=== PATIENT | female | born 1980 | race African-American/Black ===

== ENCOUNTER 2017-11-22 13:10 | Emergency (ER) | payer MEDICARE, MEDICAID ==
[~2017-11-22] VITALS: Ht 154.9 cm; Wt 72.4 kg
[~2017-11-22 13:10] MED LIST: CYCL5TAB14 PO
[2017-11-22 13:22] VITALS: BP 141/91
[2017-11-22 14:02] LABS: BASOPHILS % (AUTO) 0.3 % (0-1); EOSINOPHILS # (AUTO) 0.1 X10'3 (0-0.9); EOSINOPHILS % (AUTO) 1.2 % (0-6); HEMATOCRIT 35.3 % (35.0-45.0); HEMOGLOBIN 12.2 g/dl (12.0-16.0); LYMPHOCYTES # (AUTO) 2.9 X10'3 (1.1-4.8); LYMPHOCYTES % (AUTO) 33.8 % (21-51); MEAN CORPUSCULAR HEMOGLOBIN 29.4 PG (27.0-31.0); MEAN CORPUSCULAR HGB CONC 34.6 % (33.0-36.5); MEAN PLATELET VOLUME 6.9 FL (7.4-10.4); MONOCYTES # (AUTO) 0.3 X10'3 (0-0.9); MONOCYTES % (AUTO) 4.1 % (2-12); NEUTROPHILS # (AUTO) 5.2 X10'3 (1.8-7.7); NEUTROPHILS % (AUTO) 60.6 % (42-75); PLATELET COUNT 332 X10'3 (140-440); RED BLOOD COUNT 4.15 X10'6 (4.20-5.60); RED CELL DISTRIBUTION WIDTH 13.4 % (11.5-14.5); WHITE BLOOD COUNT 8.5 X10'3 (4.5-11.0)
[2017-11-22 14:04] LABS: URINE HCG NEGATIVE (NEG)
[2017-11-22 14:14] LABS: ALANINE AMINOTRANSFERASE 17 U/L (12-78); ALBUMIN 3.6 G/DL (3.4-5.0); ALBUMIN/GLOBULIN RATIO 0.8 (1.1-1.5); ALKALINE PHOSPHATASE 73 IU/L (46-116); ANION GAP 8 (8-16); ASPARTATE AMINO TRANSFERASE 17 U/L (10-37); BILIRUBIN,TOTAL 0.4 MG/DL (0.1-1.0); BLOOD UREA NITROGEN 11 MG/DL (7-18); BUN/CREATININE RATIO 12.8 (6.6-38.0); CALCIUM 9.2 MG/DL (8.5-10.1); CHLORIDE 105 MMOL/L (99-107); CREATININE 0.86 MG/DL (0.40-0.90); ETHANOL < 0.010 GM/DL (0.0-0.010); GLUCOSE 90 MG/DL (70-104); POTASSIUM 4.3 MMOL/L (3.5-5.1); SODIUM 138 MMOL/L (135-145); TOTAL CARBON DIOXIDE 24.8 MMOL/L (24-32); TOTAL PROTEIN 8.4 G/DL (6.4-8.2); eGFR 89 ML/MIN
[2017-11-22 14:16] LABS: URINE AMPHETAMINE SCREEN NEGATIVE (Neg); URINE BARBITUATE SCREEN NEGATIVE (Neg); URINE BENZODIAZEPINES SCREEN NEGATIVE (Neg); URINE CANNABINOID SCREEN NEGATIVE (Neg); URINE COCAINE SCREEN NEGATIVE (Neg); URINE METHADONE SCREEN NEGATIVE (Neg); URINE OPIATE SCREEN NEGATIVE (Neg); URINE PHENCYCLIDINE SCREEN NEGATIVE (Neg)
[2017-11-22] MEDS ORDERED: BUTA-281 PO (16:25)
== END 2017-11-22 17:36 | disposition home or self-care (01) ==
LOC: ER 13:10
DX: S06.0X0A Concussion without loss of consciousness, initial encounter (principal); R51 Headache; Z88.5 Allergy status to narcotic agent; Z98.2 Presence of cerebrospinal fluid drainage device; Y08.89XA Assault by other specified means, initial encounter; Y93.89 Activity, other specified; Y92.89 Other specified places as the place of occurrence of the external cause; Y99.8 Other external cause status
CPT/HCPCS: 36415; 70450; 80053; 80305; 80320; 81025; 85025; 99285

== ENCOUNTER 2018-04-22 13:41 | Emergency (ER) | payer MEDICARE, MEDICAID ==
[~2018-04-22] VITALS: Ht 154.9 cm; Wt 67.0 kg
[~2018-04-22 13:41] MED LIST changes: +BUTA-281 PO
[2018-04-22 13:45] VITALS: BP 122/80
[2018-04-22] MEDS ORDERED: albuterol 2.5 MG/3 ML nebule NEB ONE (14:10)
[2018-04-22] MEDS ORDERED: dexamethasone 4mg tablet PO ONE (14:10)
[2018-04-22] MEDS ORDERED: ACET-2119 PO (14:18)
[2018-04-22] MEDS ORDERED: acetaminophen 325mg tablet PO ONE (14:20)
== END 2018-04-22 14:56 | disposition home or self-care (01) ==
LOC: ER 13:42
DX: J45.901 Unspecified asthma with (acute) exacerbation (principal); R51 Headache; Z98.890 Other specified postprocedural states; Z88.5 Allergy status to narcotic agent; Z79.899 Other long term (current) drug therapy
CPT/HCPCS: 94640; 99283; J8540

== ENCOUNTER 2019-09-15 05:43 | Emergency (ER) | payer MEDICARE, MEDICAID ==
[~2019-09-15] VITALS: Ht 154.9 cm; Wt 68.2 kg
[~2019-09-15 05:43] MED LIST changes: +CLIN-90 PO
[2019-09-15 05:48] VITALS: BP 113/72
[2019-09-15] MEDS ORDERED: AMOX500C2 PO (07:17)
== END 2019-09-15 07:26 | disposition home or self-care (01) ==
LOC: ER 05:44
DX: H66.91 Otitis media, unspecified, right ear (principal); Z88.5 Allergy status to narcotic agent; Z79.899 Other long term (current) drug therapy
CPT/HCPCS: 99283

== ENCOUNTER 2019-12-03 12:34 | Emergency (ER) | payer MEDICARE, MEDICAID ==
[~2019-12-03] VITALS: Ht 154.9 cm; Wt 61.4 kg
[~2019-12-03 12:34] MED LIST changes: -CLIN-90 PO; +CLIN-97 PO
[2019-12-03 13:17] VITALS: BP 124/67
== END 2019-12-03 13:23 | disposition home or self-care (01) ==
LOC: ER 12:34
DX: S00.81XA Abrasion of other part of head, initial encounter (principal); S09.90XA Unspecified injury of head, initial encounter; Z98.890 Other specified postprocedural states; Z88.5 Allergy status to narcotic agent; Z79.2 Long term (current) use of antibiotics; W10.9XXA Fall (on) (from) unspecified stairs and steps, initial encounter; Y93.89 Activity, other specified; Y92.89 Other specified places as the place of occurrence of the external cause; Y99.8 Other external cause status
CPT/HCPCS: 99284

== ENCOUNTER 2020-07-15 14:48 | Emergency (ER) | payer BC, MEDICAID ==
[~2020-07-15] VITALS: Ht 154.9 cm; Wt 76.0 kg
[2020-07-15] MEDS ORDERED: dexamethasone sod phosphate 10mg/ml inj IM STA (16:04)
[2020-07-15] MEDS ORDERED: proCHLORperazine 10 MG/2 ml inj IM ONE ×2 (16:05)
[2020-07-15] MEDS ORDERED: SUMAtriptan succ. 6 MG/0.5ml vial SQ ONE (16:15)
[2020-07-15 17:08] VITALS: BP 107/71
== END 2020-07-15 17:11 | disposition home or self-care (01) ==
LOC: ER 14:49
DX: R51.9 Headache, unspecified (principal); G43.909 Migraine, unspecified, not intractable, without status migrainosus; Z88.5 Allergy status to narcotic agent; Z98.890 Other specified postprocedural states; Z79.899 Other long term (current) drug therapy
CPT/HCPCS: 96372; 99284; J0780; J1100; J3030

== ENCOUNTER 2020-08-10 13:32 | Emergency (ER) | payer BC, MEDICAID ==
[~2020-08-10] VITALS: Ht 154.9 cm; Wt 77.3 kg
[2020-08-10 13:37] VITALS: BP 124/78
== END 2020-08-10 14:08 | disposition home or self-care (01) ==
LOC: ER 13:32
DX: J06.9 Acute upper respiratory infection, unspecified (principal); Z20.828 Contact with and (suspected) exposure to other viral communicable diseases; G43.909 Migraine, unspecified, not intractable, without status migrainosus; J45.909 Unspecified asthma, uncomplicated; Z98.890 Other specified postprocedural states; Z88.5 Allergy status to narcotic agent; Z79.899 Other long term (current) drug therapy
CPT/HCPCS: 36415; 87635; 99283

== ENCOUNTER 2020-11-24 15:46 | Emergency (ER) | payer BC, MEDICAID ==
[~2020-11-24] VITALS: Ht 154.9 cm; Wt 82.7 kg
[2020-11-24] MEDS ORDERED: ketorolac trometh inj. 60 MG/2 ML VIAL IM ONE (20:25)
[2020-11-24] MEDS ORDERED: aspirin 325mg tablet PO ONE (20:25)
[2020-11-24] MEDS ORDERED: ketorolac trometh. 30mg/ml inj. IM ONE (20:25)
[2020-11-24] MEDS ORDERED: ondansetron 4mg rapidly disintigrating tab PO ONE (20:25)
[2020-11-24] MEDS ORDERED: acetaminophen 325mg tablet PO ONE (20:25)
[2020-11-24] MEDS ORDERED: CYCL-1 PO (22:07)
[2020-11-24] MEDS ORDERED: TRAM50TA2 PO (22:07)
[2020-11-24] MEDS ORDERED: MELO-100 PO (22:07)
[2020-11-24 22:17] VITALS: BP 117/80
== END 2020-11-24 22:18 | disposition home or self-care (01) ==
LOC: ER 15:47
DX: M79.605 Pain in left leg (principal); G43.909 Migraine, unspecified, not intractable, without status migrainosus; J45.909 Unspecified asthma, uncomplicated; Z98.890 Other specified postprocedural states; Z88.5 Allergy status to narcotic agent; Z79.899 Other long term (current) drug therapy
CPT/HCPCS: 93971; 96372; 99284; J1885

== ENCOUNTER 2021-01-13 00:12 | Emergency (ER) | payer BC, MEDICAID ==
[~2021-01-13] VITALS: Ht 154.9 cm; Wt 63.6 kg
[~2021-01-13 00:12] MED LIST changes: +CYCL-1 PO; +MELO-100 PO
[2021-01-13 00:57] LABS: BASOPHILS # (AUTO) 0.1 X10'3 (0-0.2); BASOPHILS % (AUTO) 0.6 % (0-1); EOSINOPHILS # (AUTO) 0.1 X10'3 (0-0.9); EOSINOPHILS % (AUTO) 0.9 % (0-6); HEMATOCRIT 36.2 % (35.0-45.0); HEMOGLOBIN 12.2 g/dl (12.0-16.0); LYMPHOCYTES # (AUTO) 4.9 X10'3 (1.1-4.8); LYMPHOCYTES % (AUTO) 36.5 % (21-51); MEAN CORPUSCULAR HEMOGLOBIN 29.5 PG (27.0-31.0); MEAN CORPUSCULAR HGB CONC 33.7 g/dL (33.0-36.5); MEAN CORPUSCULAR VOLUME 87.4 FL (78-98); MEAN PLATELET VOLUME 7.1 FL (7.4-10.4); MONOCYTES # (AUTO) 0.6 X10'3 (0-0.9); MONOCYTES % (AUTO) 4.8 % (2-12); NEUTROPHILS # (AUTO) 7.6 X10'3 (1.8-7.7); NEUTROPHILS % (AUTO) 57.2 % (42-75); PLATELET COUNT 332 X10'3 (140-440); RED BLOOD COUNT 4.15 X10'6 (4.20-5.60); RED CELL DISTRIBUTION WIDTH 13.1 % (11.5-14.5); WHITE BLOOD COUNT 13.3 X10'3 (4.5-11.0)
[2021-01-13 01:12] LABS: ALANINE AMINOTRANSFERASE 14 U/L (12-78); ALBUMIN 3.4 G/DL (3.4-5.0); ALBUMIN/GLOBULIN RATIO 0.8 (1.1-1.5); ALKALINE PHOSPHATASE 95 IU/L (46-116); ANION GAP 14 (8-16); ASPARTATE AMINO TRANSFERASE 12 U/L (10-37); BILIRUBIN,TOTAL 0.2 MG/DL (0.1-1.0); BLOOD UREA NITROGEN 12 MG/DL (7-18); BUN/CREATININE RATIO 11.5 (6.6-38.0); CALCIUM 8.6 MG/DL (8.5-10.1); CHLORIDE 108 MMOL/L (99-107); CREATININE 1.04 MG/DL (0.40-0.90); GLUCOSE 98 MG/DL (70-104); LIPASE 166 U/L (73-393); POTASSIUM 3.6 MMOL/L (3.5-5.1); SODIUM 141 MMOL/L (135-145); TOTAL CARBON DIOXIDE 19.2 MMOL/L (24-32); TOTAL PROTEIN 7.8 G/DL (6.4-8.2); eGFR 71 ML/MIN
[2021-01-13] MEDS ORDERED: sucralfate 1gm/10ml UD suspension PO STA (02:58)
[2021-01-13] MEDS ORDERED: normal saline 1000ML IV soln IVB ONE (03:00)
[2021-01-13] MEDS ORDERED: LIDOcaine Viscous 15ml cup MM ONE (03:00)
[2021-01-13] MEDS ORDERED: ondansetron/PF 4mg/2ml inj IV ONE (03:00)
[2021-01-13] MEDS ORDERED: mag hydrox/Alum hydrox/simeth 30ml oral suspension PO ONE (03:00)
[2021-01-13] MEDS ORDERED: SUCR1TAB34 PO (03:04)
[2021-01-13] MEDS ORDERED: ONDA4TAB6 PO (03:04)
[2021-01-13 03:07] LABS: ETHANOL < 0.010 GM/DL (0.0-0.010)
[2021-01-13 04:05] LABS: HCG SERUM QL NEGATIVE
[2021-01-13 04:12] VITALS: BP 131/75
== END 2021-01-13 04:13 | disposition home or self-care (01) ==
LOC: ER 00:13
DX: K29.00 Acute gastritis without bleeding (principal); R10.13 Epigastric pain; R19.7 Diarrhea, unspecified; R50.9 Fever, unspecified; G43.909 Migraine, unspecified, not intractable, without status migrainosus; J45.909 Unspecified asthma, uncomplicated; Z98.890 Other specified postprocedural states; Z88.5 Allergy status to narcotic agent; Z79.2 Long term (current) use of antibiotics; Z79.899 Other long term (current) drug therapy
CPT/HCPCS: 36415; 80053; 80320; 83690; 84703; 85025; 96374; 99283; J2405; J7030

== ENCOUNTER 2022-05-11 17:47 | Emergency (ER) | payer OTHER, MEDICAID ==
[~2022-05-11] VITALS: Ht 157.5 cm; Wt 69.0 kg
[~2022-05-11 17:47] MED LIST changes: +ONDA4TAB6 PO; +SUCR1TAB34 PO
[2022-05-11 17:55] VITALS: BP 117/73
[2022-05-11] MEDS ORDERED: AMOX-117 PO (18:59)
[2022-05-11] MEDS ORDERED: amox tr/potassium clavulanate 875/125mg TAB PO ONE (19:05)
== END 2022-05-11 19:27 | disposition home or self-care (01) ==
LOC: ER 17:48
DX: H66.91 Otitis media, unspecified, right ear (principal); G43.909 Migraine, unspecified, not intractable, without status migrainosus; Z88.5 Allergy status to narcotic agent
CPT/HCPCS: 99283

== ENCOUNTER 2022-11-21 16:01 | Emergency (ER) | payer OTHER, MEDICAID ==
[~2022-11-21] VITALS: Ht 154.9 cm; Wt 75.5 kg
[2022-11-21 16:05] VITALS: BP 128/85
[2022-11-21] MEDS ORDERED: ketorolac trometh. 30mg/ml inj. IM ONE (16:10)
[2022-11-21] MEDS ORDERED: proCHLORperazine 10 MG/2 ml inj IM ONE (16:10)
== END 2022-11-21 17:38 | disposition home or self-care (01) ==
LOC: ER 16:01
DX: S00.83XD Contusion of other part of head, subsequent encounter (principal); G43.909 Migraine, unspecified, not intractable, without status migrainosus; J45.909 Unspecified asthma, uncomplicated; Z88.5 Allergy status to narcotic agent; Z79.899 Other long term (current) drug therapy; Z79.1 Long term (current) use of non-steroidal anti-inflammatories (NSAID); X58.XXXD Exposure to other specified factors, subsequent encounter
CPT/HCPCS: 96372; 99284; J0780; J1885

== ENCOUNTER 2023-01-02 18:30 | Emergency (ER) | payer OTHER, MEDICAID ==
[~2023-01-02] VITALS: Ht 154.9 cm; Wt 75.0 kg
[2023-01-02 18:38] VITALS: BP 117/80
[2023-01-02] MEDS ORDERED: NYSPWD TP (19:16)
[2023-01-02] MEDS ORDERED: MICO57CR2 TOP (19:16)
[2023-01-02] MEDS ORDERED: fluconazole 100mg tablet PO ONE (19:20)
== END 2023-01-02 19:38 | disposition home or self-care (01) ==
LOC: ER 18:31
DX: B37.89 Other sites of candidiasis (principal); G43.909 Migraine, unspecified, not intractable, without status migrainosus; J45.909 Unspecified asthma, uncomplicated; Z88.5 Allergy status to narcotic agent; Z79.899 Other long term (current) drug therapy; Z79.1 Long term (current) use of non-steroidal anti-inflammatories (NSAID); Z79.2 Long term (current) use of antibiotics
CPT/HCPCS: 99283

== ENCOUNTER 2023-05-14 19:05 | Emergency (ER) | payer BC, MEDICAID ==
[~2023-05-14] VITALS: Ht 157.5 cm; Wt 72.6 kg
[~2023-05-14 19:05] MED LIST changes: +NYSPWD TP
[2023-05-14 19:11] VITALS: BP 135/93; PULSE 89; TEMP 98.2; O2SAT 97
[2023-05-14 21:15] LABS: BASOPHILS # (AUTO) 0.1 X10'3 (0-0.2); BASOPHILS % (AUTO) 0.8 % (0-1); EOSINOPHILS # (AUTO) 0.1 X10'3 (0-0.9); EOSINOPHILS % (AUTO) 0.5 % (0-6); HEMATOCRIT 35.5 % (35.0-45.0); HEMOGLOBIN 11.8 g/dl (12.0-16.0); LYMPHOCYTES # (AUTO) 4.5 X10'3 (1.1-4.8); LYMPHOCYTES % (AUTO) 41.5 % (21-51); MEAN CORPUSCULAR HEMOGLOBIN 28.7 PG (27.0-31.0); MEAN CORPUSCULAR HGB CONC 33.2 g/dL (33.0-36.5); MEAN CORPUSCULAR VOLUME 86.6 FL (78-98); MONOCYTES # (AUTO) 0.7 X10'3 (0-0.9); MONOCYTES % (AUTO) 6.3 % (2-12); NEUTROPHILS # (AUTO) 5.5 X10'3 (1.8-7.7); NEUTROPHILS % (AUTO) 50.9 % (42-75); PLATELET COUNT 330 X10'3 (140-440); RED CELL DISTRIBUTION WIDTH 13.5 % (11.5-14.5); WHITE BLOOD COUNT 10.8 X10'3 (4.5-11.0)
[2023-05-14 21:26] LABS: ALANINE AMINOTRANSFERASE 14 U/L (12-78); ALBUMIN 3.3 G/DL (3.4-5.0); ALBUMIN/GLOBULIN RATIO 0.8 (1.1-1.5); ALKALINE PHOSPHATASE 77 IU/L (46-116); ANION GAP 7 (8-16); ASPARTATE AMINO TRANSFERASE 15 U/L (10-37); BILIRUBIN,TOTAL 0.2 MG/DL (0.1-1.0); BLOOD UREA NITROGEN 12 MG/DL (7-18); BUN/CREATININE RATIO 11.3 (10.0-20.0); CALCIUM 9.2 MG/DL (8.5-10.1); CHLORIDE 100 MMOL/L (99-107); CREATININE 1.06 MG/DL (0.40-0.90); GLUCOSE 90 MG/DL (70-104); POTASSIUM 3.9 MMOL/L (3.5-5.1); SODIUM 135 MMOL/L (135-145); TOTAL CARBON DIOXIDE 28.5 MMOL/L (24-32); TOTAL PROTEIN 7.7 G/DL (6.4-8.2); eCRCL 54 ML/MIN; eGFR 68 ML/MIN
[2023-05-14] MEDS ORDERED: ONDA4TAB12 PO (22:19)
[2023-05-14] MEDS ORDERED: MONT-47 PO (22:19)
[2023-05-14] MEDS ORDERED: DICL50TA6 PO (22:19)
[2023-05-14] MEDS ORDERED: ketorolac trometh inj. 60 MG/2 ML VIAL IM ONE (22:20)
[2023-05-14 22:27] VITALS: RESP 17
== END 2023-05-14 22:35 | disposition home or self-care (01) ==
LOC: ER 19:06
DX: R50.9 Fever, unspecified (principal); Z20.822 Contact with and (suspected) exposure to COVID-19; N39.0 Urinary tract infection, site not specified; G43.909 Migraine, unspecified, not intractable, without status migrainosus; J45.909 Unspecified asthma, uncomplicated; Z88.5 Allergy status to narcotic agent; Z79.899 Other long term (current) drug therapy
CPT/HCPCS: 36415; 71045; 80053; 83605; 85025; 87811; 96372; 99284; J1885

== ENCOUNTER 2023-10-10 16:00 | Emergency (ER) | payer BC, MEDICAID ==
[~2023-10-10] VITALS: Ht 154.9 cm; Wt 72.3 kg
[~2023-10-10 16:00] MED LIST changes: +BUTA-245 PO; -BUTA-281 PO; +DICL50TA6 PO; +MONT-47 PO; +ONDA4TAB12 PO
[2023-10-10 16:21] VITALS: BP 142/75; PULSE 82; RESP 16; TEMP 98.3; O2SAT 98
== END 2023-10-10 17:01 | disposition home or self-care (01) ==
LOC: ER 16:01
DX: R11.2 Nausea with vomiting, unspecified (principal); R19.7 Diarrhea, unspecified; G43.909 Migraine, unspecified, not intractable, without status migrainosus; J45.909 Unspecified asthma, uncomplicated; Z88.8 Allergy status to other drugs, medicaments and biological substances; Z79.2 Long term (current) use of antibiotics; Z79.899 Other long term (current) drug therapy
CPT/HCPCS: 99281

== ENCOUNTER 2025-09-01 08:03 | Outpatient (CLI) | payer MEDICARE, MEDICAID ==
[~2025-09-01 08:03] MED LIST changes: +CLIN-224 PO; -CLIN-97 PO; +ONDA-243 PO; -ONDA4TAB12 PO
--- NOTE | 2025-09-01 10:05 | RADIOLOGY REPORT ---
CLINICAL INFORMATION: SPONDYLOLISTHESIS. TECHNIQUE: Multisequence multiplanar MRI images of the lumbar spine were obtained without contrast. COMPARISON: None INTERPRETATION: Minimal anterolisthesis of L4 on L5. Vertebral body heights are maintained. Posterior elements are intact. No focal suspicious marrow signal abnormality. No significant degenerative endplate signal changes are seen. Visualized spinal cord and cauda equina are within normal limits. The conus medullaris is appropriate in signal at the L1 level. Paraspinal soft tissues are unremarkable. L1-L2: No significant disc/facet abnormality. No significant spinal canal or neural foraminal stenosis. L2-L3: No significant disc/facet abnormality. No significant spinal canal or neural foraminal stenosis. L3-L4: Mild disc desiccation. Mild diffuse disc bulge, mildly flattening the ventral aspect of the thecal sac. No significant spinal canal stenosis. Facet hypertrophy and slight encroachment of the neural foramina by the disc bulge contributes to [id number] bilateral neural foraminal stenoses. L4-L5: Disc desiccation with moderate disc space narrowing and diffuse disc bulge with superimposed small central disc protrusion contributing to moderate to severe spinal canal stenosis and partial effacement of the lateral recesses. Facet hypertrophy and encroachment of the neural foramina by the disc bulge contributes to moderate to severe bilateral neural foraminal stenoses, right greater than left. Small bilateral facet joint effusions. Infolding of the ligamentum flavum also contributes to the spinal canal stenosis. L5-S1: Disc desiccation with moderate disc space narrowing and diffuse disc bulge mildly indenting the ventral aspect of the thecal sac. No significant spinal canal stenosis. Facet hypertrophy with moderate bilateral neural foraminal stenoses. IMPRESSION: 1. Degenerative disc disease and facet disease in the lumbar spine with associated spinal canal, subarticular, and neural foraminal stenoses as detailed above, greatest at the L4-L5 level, where there is moderate to severe spinal canal stenosis. 2. Minimal anterolisthesis of L4 on L5. 3. Additional findings as detailed above.
== END 2025-09-01 23:59 | disposition home or self-care (01) ==
LOC: MRI02 08:03
PROVIDERS: ATTEND Physician Assistant
DX: M51.17 Intervertebral disc disorders with radiculopathy, lumbosacral region (principal); M48.07 Spinal stenosis, lumbosacral region; M43.16 Spondylolisthesis, lumbar region; M47.27 Other spondylosis with radiculopathy, lumbosacral region
CPT/HCPCS: 72148